=== PATIENT | male | born 1950 | race Caucasian/White ===

== ENCOUNTER 2021-01-09 08:23 | Outpatient (CLI) | payer BC ==
[2021-01-09 09:13] LABS: CHOL/HDL RATIO 3.2 (<5.0); CHOLESTEROL 173 mg/dL; HDL CHOLESTEROL 54 mg/dL; LDL CHOLESTEROL,CALCULATED 96 mg/dL; LDL/HDL RATIO 1.8 (<3.6); TRIGLYCERIDES 116 mg/dL; VLDL CHOLESTEROL 23 mg/dL
[2021-01-09 12:13] LABS: ESTIMATED AVERAGE GLUCOSE 128 mg/dL (70-100); HEMOGLOBIN A1c% 6.1 % (4.27-6.07)
== END 2021-01-09 08:24 | disposition home or self-care (01) ==
LOC: LAB 08:23
PROVIDERS: ATTEND Internal Medicine
DX: E78.5 Hyperlipidemia, unspecified (principal); R73.01 Impaired fasting glucose
CPT/HCPCS: 36415; 80061; 83036; 83721

== ENCOUNTER 2021-06-23 08:00 | Outpatient (CLI) | payer BC | END 2021-06-23 23:59 | LOC: LAB.S 08:00 | PROVIDERS: ATTEND Physician Assistant | DX: R07.0 Pain in throat (principal); Z20.822 Contact with and (suspected) exposure to COVID-19 | CPT/HCPCS: 87070 ==

== ENCOUNTER 2021-06-30 08:00 | Outpatient (CLI) | payer BC, MEDICARE | END 2021-06-30 23:59 | LOC: LAB.S 08:00 | PROVIDERS: ATTEND Physician Assistant | DX: R59.9 Enlarged lymph nodes, unspecified (principal) | CPT/HCPCS: 87070 ==